=== PATIENT | male | born 1945 | race Caucasian/White ===

== ENCOUNTER 2024-02-04 08:26 | Day surgery (SDC) | payer MEDICARE, OTHER ==
[2024-02-03 10:25] VITALS: BMI 28.1
[~2024-02-04 08:26] MED LIST: EPINEPHrine 0.3 MG in Ophthalmic Irrigation Solution 500 ML IRR SCH
[2024-02-04] MEDS ORDERED: Cyclopentolate 1% Opth Drop 2 ML BOT ONE (09:22)
[2024-02-04] MEDS ORDERED: PHENYLephrine 2.5% Ophth Soln 15 ml Bottle ONE (09:22)
[2024-02-04] MEDS ORDERED: fentaNYL 50 mcg/mL 1 mL Vial ONE ×2 (09:53→10:05)
[2024-02-04] MEDS ORDERED: Midazolam HCl 2 mg/2 ml Vial ONE (09:53)
[2024-02-04] MEDS ORDERED: PROPOFOL 20 ML ONE (09:53)
[2024-02-04] MEDS ORDERED: Lidocaine 1% PF 5 ML VIAL ONE (10:19)
[2024-02-04] MEDS ORDERED: Indocyanine Green 25 MG/10 ML VIAL ONE (10:19)
[2024-02-04] MEDS ORDERED: Maxitrol 0.1% Opth Oint 3.5 GM TUBE ONE (10:19)
[2024-02-04] MEDS ORDERED: Triamcinolone 40 MG/ML VIAL ONE (10:19)
[2024-02-04] MEDS ORDERED: Bupivacaine 0.75% 10 ML VIAL ONE (10:19)
[2024-02-04] MEDS ORDERED: CEFAZOLIN 1 GM VIAL ONE (10:19)
[2024-02-04] MEDS ORDERED: Lidocaine 4% PF 5 ML AMP ONE (10:19)
== END 2024-02-04 11:14 | disposition home or self-care (01) ==
LOC: SDC 08:26
PROVIDERS: ATTEND Ophthalmology Retina Specialist
PROC: 08T53ZZ Resection of Left Vitreous, Percutaneous Approach (ICD-10-PCS; principal; 2024-02-04)
DX: H35.342 Macular cyst, hole, or pseudohole, left eye (principal); Z95.5 Presence of coronary angioplasty implant and graft; Z98.890 Other specified postprocedural states
CPT/HCPCS: 67042; J0171; J0690; J2250; J2704; J3010; J3301; J3490; 67025

== ENCOUNTER 2024-02-25 06:20 | Day surgery (SDC) | payer MEDICARE, OTHER ==
[2024-02-24 12:05] VITALS: BMI 28.7
[2024-02-25] MEDS ORDERED: GLYCOPYRROLATE/PF 0.2 MG/ML VIAL ONE (06:29)
[2024-02-25] MEDS ORDERED: Lidocaine 2% PF 5 ML VIAL ONE (06:29)
[2024-02-25] MEDS ORDERED: Cyclopentolate 1% Opth Drop 2 ML BOT ONE (06:33)
[2024-02-25] MEDS ORDERED: PHENYLephrine 2.5% Ophth Soln 15 ml Bottle ONE (06:33)
[2024-02-25] MEDS ORDERED: fentaNYL PF 100 MCG/2 ML SYRINGE ONE (06:55)
[2024-02-25] MEDS ORDERED: Midazolam HCl 2 mg/2 ml Vial ONE (06:55)
[2024-02-25] MEDS ORDERED: PROPOFOL 20 ML ONE (06:55)
[2024-02-25] MEDS ORDERED: Ondansetron PF 4 MG/2 ML Vial ONE ×2 (07:07→08:42)
[2024-02-25] MEDS ORDERED: Lidocaine 1% PF 5 ML VIAL ONE (07:54)
[2024-02-25] MEDS ORDERED: CEFAZOLIN 1 GM VIAL ONE (07:54)
[2024-02-25] MEDS ORDERED: BUPIVACAINE 0.75% ONE (07:54)
[2024-02-25] MEDS ORDERED: Triamcinolone 40 MG/ML VIAL ONE (07:54)
[2024-02-25] MEDS ORDERED: Maxitrol 0.1% Opth Oint 3.5 GM TUBE ONE (07:54)
[2024-02-25] MEDS ORDERED: Indocyanine Green 25 MG/10 ML VIAL ONE (07:54)
[2024-02-25] MEDS ORDERED: Lidocaine 4% PF 5 ML AMP ONE (07:54)
[2024-02-25] MEDS ORDERED: Sodium Chloride 0.9% 250 ML 250 ML ONE (08:04)
== END 2024-02-25 09:00 | disposition home or self-care (01) ==
LOC: SDC 06:20
PROVIDERS: ATTEND Ophthalmology Retina Specialist
PROC: 08T53ZZ Resection of Left Vitreous, Percutaneous Approach (ICD-10-PCS; principal; 2024-02-25)
DX: H35.342 Macular cyst, hole, or pseudohole, left eye (principal); E78.5 Hyperlipidemia, unspecified; F32.A Depression, unspecified; K21.9 Gastro-esophageal reflux disease without esophagitis; J84.10 Pulmonary fibrosis, unspecified; Z98.890 Other specified postprocedural states; Z79.899 Other long term (current) drug therapy
CPT/HCPCS: 67042; J0171; J2250; J2405; J2704; J3490; J7050; 67025